=== PATIENT | female | born 1995 | race Caucasian/White ===

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

== ENCOUNTER 2017-02-02 13:37 | Emergency (ER) | payer OTHER ==
[2017-02-02 14:19] VITALS: BP 128/88; PULSE 85; RESP 18; TEMP 98
--- NOTE | 2017-02-02 15:43 | ED ---
URI HPI - General Chief Complaint: Upper Respiratory Infection Stated Complaint: Cough Time Seen by Provider: 02/02/17 14:58 Source: patient, RN notes reviewed Mode of arrival: ambulatory Limitations: no limitations - History of Present Illness Initial Comments: Patient is a 21-year-old female presents to the emergency room for evaluation of cough 1.5 months. Patient states the cough is not subsiding. Patient denies taking anything [id number] or following up with her primary care provider. Patient states the cough is productive. Patient states her throat hurts every time she coughs. Patient does state she has a history of asthma. Patient denies using inhalers or nebulizers. Patient states that she quit smoking in September. Patient denies any fevers or chills. Patient denies receiving her influenza vaccine this year. Patient states been having on and off bilateral ear pain. Patient denies headache or dizziness. Patient does admit that symptoms have worsened over the past 2 days. Patient states she has rib pain every time she coughs. - Related Data Home Medications Medication Instructions Recorded Confirmed ALPRAZolam [Xanax] 0.5 mg PO BID 12/02/16 12/02/16 Previous Rx's Medication Instructions Recorded Metoclopramide HCl [Reglan] 10 mg PO TID #20 tablet 12/02/16 Oseltamivir [Tamiflu] 75 mg PO Q12HR 5 Days 02/02/17 Allergies Allergy/AdvReac Type Severity Reaction Status Date / Time [place] And Derivatives Allergy Unknown Verified 12/02/16 18:48 [[place]] ibuprofen [From Motrin] Allergy Unknown Verified 12/02/16 18:48 lactose Allergy Unknown Verified 12/02/16 18:48 morphine Allergy Rash/Hives Verified 12/02/16 18:48 venom-honey bee Allergy Unknown Verified 12/02/16 18:48 Review of Systems ROS Statement: Those systems with pertinent positive or pertinent negative responses have been documented in the HPI. ROS Other: All systems not noted in ROS Statement are negative. Past Medical History Past Medical History: Asthma History of Any Multi-Drug Resistant Organisms: None Reported Additional Past Surgical History / Comment(s): Ovarian cystectomy Past Psychological History: Anxiety, Depression, Panic Disorder Smoking Status: Never smoker Past Alcohol Use History: None Reported Past Drug Use History: None Reported General Exam - General Exam Comments Initial Comments: Sitting in exam room, no acute distress. Limitations: no limitations General appearance: alert, in no apparent distress Head exam: Present: atraumatic, normocephalic, normal inspection Eye exam: Present: normal appearance ENT exam: Present: normal exam, normal oropharynx, mucous membranes moist, TM's normal bilaterally, normal external ear exam Neck exam: Present: normal inspection Respiratory exam: Present: normal lung sounds bilaterally. Absent: respiratory distress Cardiovascular Exam: Present: regular rate, normal rhythm, normal heart sounds Extremities exam: Present: normal inspection Back exam: Present: normal inspection Neurological exam: Present: alert, oriented X3, CN II-XII intact, normal gait Psychiatric exam: Present: normal affect, normal mood Skin exam: Present: warm, dry, intact, normal color. Absent: rash Course Vital Signs 02/02/17 14:17 Temperature 98.0 F Pulse Rate 85 Respiratory 18 Rate Blood Pressure 128/88 O2 Sat by Pulse 98 Oximetry Medical Decision Making - Medical Decision Making Patient is a 21-year-old female presents to the emergency room for violation of cough 1.5 months. Patient does admit her symptoms worsen over the past 2 days. Patient is influenza B positive. Will place patient on Tamiflu. Advised patient to follow-up with her primary care provider. Patient states she understands everything that was discussed with her. Return parameters discussed. - Lab Data Lab Results 02/02/17 Range/Units 15:11 Influenza Type A RNA Not Detected (Not Detectd) Influenza Type B (PCR) Detected H (Not Detectd) - Radiology Data Radiology results: report reviewed, image reviewed Disposition Clinical Impression: Influenza B Disposition: HOME SELF-CARE Condition: Good Instructions: Influenza (ED) Additional Instructions: Take Tamiflu as directed. Drink plenty of fluids. Take Tylenol as needed for fever/discomfort. Please follow up with primary care provider in 1-2 days. If any new symptom arises or symptoms worsen, return to ER as soon as possible. Prescriptions: Oseltamivir [Tamiflu] 75 mg PO Q12HR 5 Days Referrals: Shantanu Miller MD [Primary Care Provider] - 1-2 days Time of Disposition: 16:03
--- NOTE | 2017-02-02 15:51 | XR ---
EXAMINATION TYPE: XR chest 2V DATE OF EXAM: 02/02/2017 3:48 PM COMPARISON: Prior chest x-ray June 25, 2013. HISTORY: History of asthma presents with cough for one month. TECHNIQUE: Frontal and lateral views of the chest are obtained. FINDINGS: There is no focal air space opacity, pleural effusion, or pneumothorax seen. The cardiac silhouette size is within normal limits. The osseous structures are intact. IMPRESSION: No acute cardiopulmonary process. No significant change from prior.
== END 2017-02-02 16:00 | disposition home or self-care (01) ==
LOC: EC 13:37
DX: J10.1 Influenza due to other identified influenza virus with other respiratory manifestations (principal); J45.909 Unspecified asthma, uncomplicated; F32.9 Major depressive disorder, single episode, unspecified; F41.0 Panic disorder [episodic paroxysmal anxiety]; Z79.899 Other long term (current) drug therapy; Z88.6 Allergy status to analgesic agent; Z88.5 Allergy status to narcotic agent; Z91.030 Bee allergy status; Z88.8 Allergy status to other drugs, medicaments and biological substances; Z91.048 Other nonmedicinal substance allergy status
CPT/HCPCS: 71020; 87502; 99283

== ENCOUNTER 2021-04-14 23:45 | Emergency (ER) | payer OTHER ==
[2021-04-14 23:51] VITALS: TEMP 98.1
[2021-04-15] MEDS ORDERED: SODIUM CHLORIDE 0.9% 1,000 ML IV STA (00:03)
[2021-04-15] MEDS ORDERED: HYDROmorphone 1 MG/ML 1 ML SYRINGE IVP STA (00:03)
[2021-04-15] MEDS ORDERED: ONDANSETRON 4 MG/2 ML VIAL IVP STA (00:03)
[2021-04-15] MEDS ORDERED: diphenhydrAMINE 50 MG/ML 1 ML VIAL IVP STA (00:03)
--- NOTE | 2021-04-15 00:52 | ED ---
Headache HPI - General Chief Complaint: Headache Stated Complaint: Migraine Time Seen by Provider: 04/14/21 23:53 Source: RN notes reviewed Mode of arrival: EMS Limitations: no limitations - History of Present Illness Initial Comments: Patient is a 25-year-old female presents emergency department complaining of a migraine. She notes that she was diagnosed when she is approximately 12 years old migraines. She denied taking any medication home as she does not have any. She notes that she cannot take Motrin as he gives or AT [place]. She denied taki ng Tylenol as it usually does not touch the pain. She was lying in bed sleeping at first. She woke up was in no apparent distress or pain. She noted that the pain alternates from a 6 out of 10 to an 8 out of 10 in waves. She denied any photophobia or phonophobia chest pain shortness breath diarrhea constipation fever fatigue chills. - Related Data Home Medications Medication Instructions Recorded Confirmed ALPRAZolam [Xanax] 0.5 mg PO BID 12/02/16 12/02/16 Previous Rx's Medication Instructions Recorded Metoclopramide HCl [Reglan] 10 mg PO TID #20 tablet 12/02/16 Oseltamivir [Tamiflu] 75 mg PO Q12HR 5 Days cap 02/02/17 Allergies Allergy/AdvReac Type Severity Reaction Status Date / Time [place] And Derivatives Allergy Unknown Verified 12/02/16 18:48 [[place]] ibuprofen [From Motrin] Allergy Unknown Verified 12/02/16 18:48 lactose Allergy Unknown Verified 12/02/16 18:48 morphine Allergy Rash/Hives Verified 12/02/16 18:48 venom-honey bee Allergy Unknown Verified 12/02/16 18:48 Review of Systems ROS Statement: Those systems with pertinent positive or pertinent negative responses have been documented in the HPI. ROS Other: All systems not noted in ROS Statement are negative. Past Medical History Past Medical History: Asthma Additional Past Medical History / Comment(s): Anemia5 History of Any Multi-Drug Resistant Organisms: None Reported Additional Past Surgical History / Comment(s): Ovarian cystectomy Past Psychological History: Anxiety, Depression, Panic Disorder Smoking Status: Former smoker Past Alcohol Use History: None Reported Past Drug Use History: Marijuana General Exam Limitations: no limitations General appearance: alert, in no apparent distress Head exam: Present: atraumatic, normocephalic, normal inspection Eye exam: Present: normal appearance, PERRL, EOMI. Absent: scleral icterus, conjunctival injection, periorbital swelling Neck exam: Present: normal inspection Respiratory exam: Present: normal lung sounds bilaterally. Absent: respiratory distress, wheezes, rales, rhonchi, stridor Cardiovascular Exam: Present: regular rate, normal rhythm, normal heart sounds. Absent: systolic murmur, diastolic murmur, rubs, gallop, clicks GI/Abdominal exam: Present: soft, normal bowel sounds. Absent: distended, tenderness, guarding, rebound, rigid Extremities exam: Present: normal inspection, full ROM, normal capillary refill. Absent: tenderness, pedal edema, joint swelling, calf tenderness Neurological exam: Present: alert, oriented X3, CN II-XII intact Psychiatric exam: Present: normal affect, normal mood Skin exam: Present: warm, dry, intact, normal color. Absent: rash Course Vital Signs 04/14/21 04/15/21 23:46 00:55 Temperature 98.1 F Pulse Rate 80 62 Respiratory 20 16 Rate Blood Pressure 100/66 103/63 O2 Sat by Pulse 100 97 Oximetry Medical Decision Making - Medical Decision Making 25-year-old female complaining of migraine headache,that this is a chronic issue. 50 mg of Benadryl, 1 mg of Dilaudid, 4 mg Zofran, 1 L normal saline ordered. Nurse notes after measures medications patient immediately stated that she felt better and began resting. Upon reevaluation patient states that she feels much better, she was resting comfortably in bed. Case discussed with Dr. Clarence Suh, patient can discharge home with follow-up primary care. Disposition Clinical Impression: Migraine headache Disposition: HOME SELF-CARE Condition: Stable Instructions (If sedation given, give patient instructions): Acute Headache (ED) Additional Instructions: Please return to the Emergency Department if symptoms worsen or any other concerns. Increase oral fluid intake. Take Tylenol and other home medications as prescribed. Follow-up with primary care in the next 1-3 days. Is patient prescribed a controlled substance at d/c from ED?: No Referrals: None,Stated [REFERRING] - 1-2 days Time of Disposition: 02:04
[2021-04-15 01:33] VITALS: BP 103/63; PULSE 62; RESP 16
== END 2021-04-15 02:42 | disposition home or self-care (01) ==
LOC: EC 23:45
DX: G43.909 Migraine, unspecified, not intractable, without status migrainosus (principal); J45.909 Unspecified asthma, uncomplicated; F41.9 Anxiety disorder, unspecified; F32.9 Major depressive disorder, single episode, unspecified; F12.90 Cannabis use, unspecified, uncomplicated; Z87.891 Personal history of nicotine dependence
CPT/HCPCS: 99283; 96374; 96375 ×2; J1200; J2405; J1170

== ENCOUNTER → 2024-07-05 | Outpatient (CLI) | payer OTHER ==
--- NOTE | 2024-07-26 10:14 | MR ---
EXAMINATION TYPE: MR brain wo/w con, MRI orbits DATE OF EXAM: 07/06/2024 COMPARISON: None HISTORY: Optic neuritis head pressure muscle spasm CONTRAST: Performed utilizing 12 mL intravenous Gadavist gadolinium contrast. TECHNIQUE: Multiplanar, multiecho imaging on a 3.0 Agatha magnet is performed through the brain. Stud y is performed within 24 hours of arrival to the hospital. The craniovertebral junction is normal. The pituitary is normal. Diffusion-weighted imaging is performed. No abnormal hyperintensity is present to suggest an acute i ntracranial infarct or acute ischemic change. There are scattered punctate areas of hyperintensity on T2 and Inversion Recovery weighted sequences which are non-specific but can be related to microvascular ischemic changes. Ventricles and sulci are appropriate for the patient age. No effacement is evident. No abnormal enhan cement within the brain is evident. There is mucosal thickening through the right maxillary sinus. Minimal mucosal thickening may be with in the anterior ethmoid air cells. Remaining paranasal sinuses are clear. Mastoid air cells are clear . Orbits: The globes are symmetrical. Optic nerves appear normal. No significant fluid within the optic nerve sheath is evident. Extraocular muscles are normal. Intraconal and extraconal fat is unremarkab le. No extraocular muscle expansion is evident. Optic chiasm is visualized appears normal. No abnorma l enhancement is evident. IMPRESSION: 1. Normal bilateral orbits by MRI. 2. Pre and postcontrast MRI brain appears unremarkable.
== END | disposition home or self-care (01) ==
LOC: RADMRIMAIN 06:33
PROVIDERS: ATTEND Ophthalmology
DX: H46.01 Optic papillitis, right eye (principal)
CPT/HCPCS: 70543; 70553; A9585